=== PATIENT | male | born 1950 | race African-American/Black ===

== ENCOUNTER 2017-10-30 12:30 | Emergency (ER) | payer OTHER ==
[~2017-10-30] VITALS: Ht 165.1 cm; Wt 81.6 kg
[~2017-10-30 12:30] MED LIST: AMLODIPINE BESYL5 MG ORAL; HYDROCHLOROTHIA25 MG ORAL; PRAVASTATIN SOD20 M1 ORAL; VITAMIN D-32000 UNI1 PO
[2017-10-30] MEDS ORDERED: Sodium Chloride 500ML 500 ML IV ONE (13:09)
[2017-10-30] MEDS ORDERED: Mylanta II UD 30ml ORAL ONE (13:15)
[2017-10-30] MEDS ORDERED: Isovue-300 100ml vial INJ PRN (13:15)
[2017-10-30 13:33] LABS: BASOPHILS % (AUTO) 1.3 % (0.0-2.0); EOSINOPHILS % (AUTO) 0.5 % (0.0-3.0); HEMATOCRIT 49.2 % (42.0-52.0); HEMOGLOBIN 16.5 G/DL (14.2-18.0); LYMPHOCYTES % (AUTO) 13.1 % (20.0-45.0); MEAN CORPUSCULAR VOLUME 88 FL (80-99); MONOCYTES % (AUTO) 7.3 % (1.0-10.0); NEUTROPHILS % (AUTO) 77.9 % (45.0-75.0); PLATELET COUNT 212 K/UL (150-450); RED BLOOD COUNT 5.62 M/UL (4.70-6.10); RED CELL DISTRIBUTION WIDTH 11.6 % (11.6-14.8)
[2017-10-30 13:52] LABS: ANION GAP 12 mmol/L (5-15); BLOOD UREA NITROGEN 13 mg/dL (7-18); CALCIUM 9.6 MG/DL (8.5-10.1); CARBON DIOXIDE 27 MMOL/L (21-32); CHLORIDE 103 MMOL/L (98-107); CREATININE 1.6 MG/DL (0.55-1.30); POTASSIUM 3.9 MMOL/L (3.5-5.1); SODIUM 141 MMOL/L (136-145)
[2017-10-30 13:57] LABS: ALANINE AMINOTRANSFERASE 38 U/L (12-78); ALBUMIN 4.5 G/DL (3.4-5.0); ALBUMIN/GLOBULIN RATIO 1.2 (1.0-2.7); ALKALINE PHOSPHATASE 68 U/L (46-116); ASPARTATE AMINO TRANSFERASE 30 U/L (15-37); BILIRUBIN,TOTAL 0.6 MG/DL (0.2-1.0)
--- NOTE | 2017-10-30 14:58 | Diagnostic Imaging Report ---
Indication: Abdominal pain Technique: Spiral acquisitions obtained through the abdomen and pelvis. No oral contrast utilized, per emergency room physician request No IV contrast utilized, due to history of renal insufficiency.. Multiplanar reconstructions were generated. Total dose length product 754.59 mGycm. CTDIvol(s) 15.47 mGy. Dose reduction achieved using automated exposure control Comparison: 12/05/2015 Findings: There is mild right hydroureter and mild indistinctness of the periureteral fat on the right. There is very mild fullness of the right renal collecting system. This is somewhat more striking than seen on the prior study. No ureteral calculi are demonstrated. However, there is a 2 mm calculus in the most dependent portion of the bladder centrally, which is not evident on the prior study. No intrarenal calculi are demonstrated. No left ureteral calculi are evident. Lack of IV contrast limits assessment of the renal parenchyma. Again demonstrated is a 3 cm right upper pole cyst. The bladder is somewhat distended. The prostate is diffusely enlarged. This is also demonstrated previously. The appendix is normal. There are a few small diverticula. No evidence of diverticulitis. No small bowel distention. No free or loculated intraperitoneal air or fluid is evident. Lack of IV contrast limits assessment of the solid organs. The liver demonstrates slight surface nodularity, particularly the anterior surface of the left lobe and inferior right lobe. This is more apparent than on the prior exam. No focal hepatic abnormality. The gallbladder, bile ducts, pancreas, spleen, adrenals are unremarkable. No retroperitoneal or mesenteric mass or adenopathy. No pelvic mass or adenopathy. The included lung bases demonstrate posterior dependent atelectatic changes. The bones demonstrate degenerative spondylosis changes. There is bilateral L5 spondylolysis, grade 1 L5 on S1 spondylolisthesis, and secondary degenerative change again demonstrated. Impression: Mild right hydroureter, slight periureteral fat stranding, and slight fullness of the right renal collecting system. Although no ureteral calculi are demonstrated, the presence of a small 2 mm calculus within the bladder lumen suggest recent stone passage. Correlation with clinical findings recommended No other acute abnormality Suggestion of slight hepatic surface nodularity, could indicate early cirrhotic changes. Correlate with clinical history and laboratory findings Prostatomegaly Bilateral L5 spondylolysis, grade 1 L5 on S1 spondylolisthesis, and secondary L5-S1 degenerative disc disease Colonic diverticulosis. No evidence of diverticulitis Other findings as described, including 3 cm right upper pole renal cyst, posterior dependent pulmonary atelectasis, other degenerative spondylosis The CT scanner at [facility] is accredited by the [employer] and the scans are performed using protocols designed to limit radiation exposure to as low as reasonably achievable to attain images of sufficient resolution adequate for diagnostic evaluation.
[2017-10-30 15:00] VITALS: BP 137/83
[2017-10-30 15:49] LABS: APPEARANCE,URINE CLEAR; BILIRUBIN, URINE NEGATIVE (NEGATIVE); COLOR,URINE PALE YELLOW; GLUCOSE, URINE (UA) NEGATIVE (NEGATIVE); KETONES,URINE NEGATIVE (NEGATIVE); LEUKOCYTE ESTERASE ,URINE NEGATIVE (NEGATIVE); NITRITE,URINE NEGATIVE (NEGATIVE); PH,URINE 6 (4.5-8.0); PROTEIN,URINE NEGATIVE (NEGATIVE); UROBILINOGEN,URINE NORMAL MG/DL (0.0-1.0)
--- NOTE | 2017-10-30 15:55 | Emergency Room Report ---
History of Present Illness General Chief Complaint: General Complaint Source: Patient Present Illness HPI Patient is a 66-year-old male who presented after increased epigastric pain which was the intermittent in nature associated with some epigastric fullness and distention. Patient reports having the previous admission after similar symptoms. The patient states that he had been having several episodes of vomiting. He denies any fever.The patient reports initially having pain to the right side. Pain currently is located in the left side. This is worse with movement. Patient denies any fever. Allergies: Coded Allergies: No Known Allergies (Unverified , 12/05/15) Patient History Past Medical History: see triage record Reviewed Nursing Documentation: PMH: Agreed; PSxH: Agreed Nursing Documentation-PMH Hx Hypertension: Yes Hx Diabetes: Yes Hx Gastrointestinal Problems: Yes - HEMORRHOIDS Review of Systems All Other Systems: negative except mentioned in HPI Physical Exam Vital Signs Date Time Temp Pulse Resp B/P (MAP) Pulse Ox O2 Delivery O2 Flow Rate FiO2 10/30/17 12:45 98.1 54 19 155/91 98 Room Air 98.1 Sp02 EP Interpretation: reviewed, normal General Appearance: normal inspection, well appearing, no apparent distress, alert, GCS 15 Head: atraumatic ENT: normal ENT inspection, hearing grossly normal, normal voice Neck: normal inspection, full range of motion, supple, no bony tend Respiratory: normal inspection, lungs clear, normal breath sounds, no respiratory distress, no retraction, no wheezing Cardiovascular #1: regular rate, rhythm, no edema Gastrointestinal: normal inspection, normal bowel sounds, soft, no guarding, no hernia, tenderness - epigastric and left upper quadrant Genitourinary: no CVA tenderness Musculoskeletal: normal inspection, back normal, normal range of motion Neurologic: normal inspection, alert, oriented x3, responsive, senior clinical consultant III-XII nml as tested, speech normal Psychiatric: normal inspection, judgement/insight normal, mood/affect normal Skin: normal inspection, normal color, no rash Medical Decision Making Diagnostic Impression: Primary Impression: Abdominal pain Additional Impressions: Leukocytosis Diverticulosis Bladder stone ER Course Patient presented for abdominal pain. Differential diagnoses included ischemic bowel, appendicitis, perforated viscus, abdominal aortic aneurysm, inferior myocardial infarction, viral gastroenteritis. Because of complexity of patient' s case laboratory testing and imaging studies were ordered.The laboratory testing was able for elevated white blood count. The patient was noted to have evidence of her recently passed urinary right-sided stone on CT with some colonic diverticulosis. The patient will be hospitalized for further evaluation and treatment. Labs Test 10/30/17 13:10 10/30/17 15:30 White Blood Count 14.0 K/UL (4.8-10.8) Red Blood Count 5.62 M/UL (4.70-6.10) Hemoglobin 16.5 G/DL (14.2-18.0) Hematocrit 49.2 % (42.0-52.0) Mean Corpuscular Volume 88 FL (80-99) Mean Corpuscular Hemoglobin 29.4 PG (27.0-31.0) Mean Corpuscular Hemoglobin Concent 33.6 G/DL (32.0-36.0) Red Cell Distribution Width 11.6 % (11.6-14.8) Platelet Count 212 K/UL (150-450) Mean Platelet Volume 8.3 FL (6.5-10.1) Neutrophils (%) (Auto) 77.9 % (45.0-75.0) Lymphocytes (%) (Auto) 13.1 % (20.0-45.0) Monocytes (%) (Auto) 7.3 % (1.0-10.0) Eosinophils (%) (Auto) 0.5 % (0.0-3.0) Basophils (%) (Auto) 1.3 % (0.0-2.0) Prothrombin Time 9.9 SEC (9.30-11.50) Prothromb Time International Ratio 1.0 (0.9-1.1) Activated Partial Thromboplast Time 26 SEC (23-33) Sodium Level 141 MMOL/L (136-145) Potassium Level 3.9 MMOL/L (3.5-5.1) Chloride Level 103 MMOL/L (98-107) Carbon Dioxide Level 27 MMOL/L (21-32) Anion Gap 12 mmol/L (5-15) Blood Urea Nitrogen 13 mg/dL (7-18) Creatinine 1.6 MG/DL (0.55-1.30) Estimat Glomerular Filtration Rate 53.0 mL/min (>60) Glucose Level 122 MG/DL (74-106) Calcium Level 9.6 MG/DL (8.5-10.1) Total Bilirubin 0.6 MG/DL (0.2-1.0) Aspartate Amino Transf (AST/SGOT) 30 U/L (15-37) Alanine Aminotransferase (ALT/SGPT) 38 U/L (12-78) Alkaline Phosphatase 68 U/L (46-116) Troponin I 0.000 ng/mL (0.000-0.056) Total Protein 8.4 G/DL (6.4-8.2) Albumin 4.5 G/DL (3.4-5.0) Globulin 3.9 g/dL Albumin/Globulin Ratio 1.2 (1.0-2.7) Lipase 113 U/L (73-393) Urine Color Pale yellow Urine Appearance Clear Urine pH 6 (4.5-8.0) Urine Specific [place] 1.005 (1.005-1.035) Urine Protein Negative (NEGATIVE) Urine Glucose (UA) Negative (NEGATIVE) Urine Ketones Negative (NEGATIVE) Urine Occult Blood 2+ (NEGATIVE) Urine Nitrite Negative (NEGATIVE) Urine Bilirubin Negative (NEGATIVE) Urine Urobilinogen Normal MG/DL (0.0-1.0) Urine Leukocyte Esterase Negative (NEGATIVE) Last Vital Signs Date Time Temp Pulse Resp B/P (MAP) Pulse Ox O2 Delivery O2 Flow Rate FiO2 10/30/17 15:00 97.6 76 19 137/83 100 Room Air 97.6 Status: unchanged Disposition: XFER SHT-TRM HOSP Condition: Serious Referrals: NON PHYSICIAN (PCP) Steffen Salinas MD October 30, 2017 15:55
[2017-10-30 17:00] VITALS: BP 154/67
[2017-10-30 18:58] VITALS: BP 145/92
[2017-10-30 19:47] VITALS: BP 139/88
--- NOTE | 2017-10-31 16:44 | Cardiology Report ---
APPROVED REPORT EKG Measurement Heart [id number] Sinus bradycardia with occasional premature ventricular complexes Nonspecific T wave abnormality Abnormal ECG
== END 2017-10-30 16:46 | disposition short-term general hospital (02) ==
LOC: EMR 13:36
DX: R10.13 Epigastric pain (principal); K57.30 Diverticulosis of large intestine without perforation or abscess without bleeding; N21.0 Calculus in bladder; I10 Essential (primary) hypertension; E11.9 Type 2 diabetes mellitus without complications; M43.06 Spondylolysis, lumbar region; M51.37 Other intervertebral disc degeneration, lumbosacral region
CPT/HCPCS: 36415; 74176; 80053; 81003; 83690; 84484; 85025; 85610; 85730; 93005; 96361; 96374; 96375; 99284; J1956; J2405; J7040; S0028